=== PATIENT | female | born 1965 | race Caucasian/White ===

== ENCOUNTER 2016-11-11 15:51 | Emergency (ER) | payer OTHER ==
[2016-11-11 16:23] VITALS: BP 119/57
[2016-11-11] MEDS ORDERED: Lidocaine 1% MPF wEPI 200,000* 30 ML SDV INJ ONE (17:12)
--- NOTE | 2016-11-11 17:13 | UC ---
Skin Complaint HPI - HPI Summary HPI Summary: 51 year old female with skin complaint. 4cm x 3.5cm erythema, indurated, itchy, and painful area with what appears to be a black head at the center on mid back worsening since yesterday morning. Patient and patient's son stated patient has had that blackhead for about 15 years. Denies fever/chills. Patient is unemployed. PCP Piyush Che. Now the area is very tender and red. 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 Hx Last Menstrual Period: 11/03/16 Onset/Duration: Gradual Onset Timing: Constant Onset Severity: Moderate - Allergy/Home Medications Allergies/Adverse Reactions: Allergies Allergy/AdvReac Type Severity Reaction Status Date / Time Penicillins Allergy Mild Hives Verified 11/11/16 16:09 Vancomycin Allergy Red Man's Verified 11/11/16 16:09 Face Home Medications: Home Medications Cyclobenzaprine TAB* [Flexeril 10 MG TAB*] 10 mg PO TID PRN 11/11/16 [History Confirmed 11/11/16] Eletriptan Hydrobromide [Relpax] 20 mg PO BID PRN 11/11/16 [History Confirmed ] Magnesium Oxide [Magnesium] 500 mg PO DAILY 11/11/16 [History Confirmed 11/11/16 ] Pantoprazole TAB (NF) [Protonix TAB (NF)] 40 mg PO DAILY 11/11/16 [History Confirmed 11/11/16] Review of Systems Skin: Other - red raised cyst on back All Other Systems Reviewed And Are Negative: Yes PMH/Surg Hx/FS Hx/Imm Hx - Surgical History Surgical History: Yes Surgery Procedure, Year, and Place: Bilat carpal mckenna, bilat triger thumb, MILL WASHER fusion L thumb. L shoulder impingement, tubaligation, R knee total replacement, tonsillectomy,bilateral big toe nails removed - Social History Alcohol Use: Rare Substance Use Type: None Smoking Status (MU): Former Smoker Length of Time of Smoking/Using Tobacco: 02/26 PPD for 10-15 Years When Did the Patient Quit Smoking/Using Tobacco: 2000 - Immunization History Most Recent Influenza Vaccination: Not the Season Physical Exam Triage Information Reviewed: Yes Appearance: Well-Appearing, Well-Nourished Vital Signs: Initial Vital Signs Temp 97.9 F 11/11/16 16:05 Pulse 98 11/11/16 16:05 Resp 18 11/11/16 16:05 BP 119/57 11/11/16 16:05 Pulse Ox 97 11/11/16 16:05 Vital Signs Reviewed: Yes Eye Exam: Normal ENT Exam: Normal Neck: Positive: 1 Respiratory Exam: Normal Cardiovascular Exam: Normal Abdominal Exam: Normal Musculoskeletal Exam: Normal Neurological Exam: Normal Psychological Exam: Normal Skin Exam: Normal Skin: Positive: Other - red tender raised infected sebaceous cyst upper mid back on the left of the spinal column. no streaking Course/Dx - Course Course Of Treatment: I&D done and moderate amount of discharge yellow colored out. Start short course of Abx and discussed wound care and culture performed Pt tolerated procedure well with minimal blood loss - Differential Diagnoses - Skin Complaint Differential Diagnoses: Abscess - Diagnoses Provider Diagnoses: Infected sebaceous cyst Discharge - Discharge Plan Condition: Good Disposition: HOME Prescriptions: Doxycycline (Monohydrate) [Doxycycline Monohydrate] 100 mg PO BID #14 cap Patient Education Materials: Epidermal Inclusion Cysts (ED) Referrals: Piyush Che MD [Primary Care Provider] - 3 Days Images Front/Back of Body, Lg (Gordon): 1 - raised elevated infected cyst
[2016-11-11] MEDS ORDERED: Lidocaine 2% W/EPI 1:100,000* 20 ML MDV ONE (17:16)
== END 2016-11-11 17:56 | disposition home or self-care (01) ==
LOC: UCCORT 15:51
DX: L72.3 Sebaceous cyst (principal); Z87.891 Personal history of nicotine dependence; Z88.0 Allergy status to penicillin
CPT/HCPCS: 10060; 87070; 87077; 87186; 87205; 87640; 87641; 99212; G0463

== ENCOUNTER 2019-03-16 14:29 | Emergency (ER) | payer OTHER ==
--- NOTE | 2019-03-16 14:52 | UC ---
Skin Complaint HPI - HPI Summary HPI Summary: for the past 4 days has had an itchy painful spot on her back. she thinks it may be a bug bite but is not sure. has not tried anything. nothing makes it better/worse. - History of Current Complaint Chief Complaint: UCSkin Time Seen by Provider: 03/16/19 14:45 Stated Complaint: SKIN COMPLAINT Hx Obtained From: Patient Hx Last Menstrual Period: 11/03/16 Location: Discrete - Allergy/Home Medications Allergies/Adverse Reactions: Allergies Allergy/AdvReac Type Severity Reaction Status Date / Time Penicillins Allergy Mild Hives Verified 03/16/19 14:56 vancomycin Allergy Red Man's Verified 03/16/19 14:56 Face Home Medications: Home Medications Baclofen TAB* [Lioresal TAB*] 10 mg PO BID 03/16/19 [History Confirmed 03/16/19] Erenumab-Aooe [Aimovig Autoinjector] 70 mg SQ MONTHLY 03/16/19 [History Confirmed 03/16/19] Meclizine TAB* [Antivert 12.5 TAB*] 25 mg PO TID PRN 03/16/19 [History Confirmed 03/16/19] Meloxicam [Mobic] 15 mg PO DAILY 03/16/19 [History Confirmed 03/16/19] busPIRone TAB* [Buspar TAB *] 15 mg PO QAM 03/16/19 [History Confirmed 03/16/19] PMH/Surg Hx/FS Hx/Imm Hx Previously Healthy: Yes Endocrine History: Other - obesity Neurological History: Migraine - Surgical History Surgical History: Yes Surgery Procedure, Year, and Place: Bilat carpal tunnel,. bilat trigger thumb ( X2 FOR LEFT),. BACK DIGGER OPERATOR fusion L thumb. L shoulder impingement,. tubal ligation,. BILAT knee total replacement,. tonsillectomy,. bilateral big toe nails removed , - Social History Alcohol Use: Rare Substance Use Type: None Smoking Status (MU): Former Smoker Length of Time of Smoking/Using Tobacco: 02/26 PPD for 10-15 Years When Did the Patient Quit Smoking/Using Tobacco: 2000 - Immunization History Most Recent Influenza Vaccination: Not the 2017/2017 Season Review of Systems All Other Systems Reviewed And Are Negative: Yes Constitutional: Negative: Fever Skin: Positive: Negative ENT: Negative: Sore Throat Respiratory: Negative: Cough Neurological: Negative: Headache Physical Exam Triage Information Reviewed: Yes Appearance: Well-Appearing Vital Signs Reviewed: Yes Eyes: Positive: Conjunctiva Clear ENT: Positive: Pharynx normal Neurological: Positive: Alert Skin: Positive: Rashes - irritated rough slightly hyperpigmented raised macule. Course/Dx - Course Course Of Treatment: An irritated seborrheic keratosis lesion on back based on exam findings. Discussed dx and suggested she see derm if not improving in a week. No indication for rx. Advised vaseline for moisture. good vitals. - Differential Diagnoses - Skin Complaint Differential Diagnoses: Tinea, Other - Diagnoses Provider Diagnosis: Seborrheic keratoses, inflamed Discharge ED - Sign-Out/Discharge Documenting (check all that apply): Patient Departure All imaging exams completed and their final reports reviewed: No Studies - Discharge Plan Condition: Good Disposition: HOME Patient Education Materials: Lanolin (On the skin) Referrals: Piyush Che MD [Primary Care Provider] - Additional Instructions: see patient education print out - Billing Disposition and Condition Condition: GOOD Disposition: Home - Attestation Statements Provider Attestation: Per institutional requirements, I have reviewed the chart, however, I was not consulted specifically or made aware of this patient by the midlevel provider. I did not personally evaluate, interact with, or disposition this patient. EK
[2019-03-16 14:54] VITALS: BP 114/78
== END 2019-03-16 15:21 | disposition home or self-care (01) ==
LOC: UCCORT 14:29
DX: L82.0 Inflamed seborrheic keratosis (principal); Z88.0 Allergy status to penicillin; Z87.891 Personal history of nicotine dependence
CPT/HCPCS: 99212; G0463